=== PATIENT | male | born 1970 | race Two or more races ===

== ENCOUNTER 2020-10-27 17:05 | Emergency (ER) | payer OTHER ==
[~2020-10-27] VITALS: Ht 175.3 cm; Wt 86.4 kg
[2020-10-27 19:10] VITALS: BP 192/111
== END 2020-10-27 19:18 | disposition home or self-care (01) ==
LOC: ER 17:06
DX: R03.0 Elevated blood-pressure reading, without diagnosis of hypertension (principal); I10 Essential (primary) hypertension; Z88.6 Allergy status to analgesic agent; Z79.899 Other long term (current) drug therapy
CPT/HCPCS: 99281